=== PATIENT | male | born 1940 | race Caucasian/White ===

== ENCOUNTER 2017-09-29 14:19 | Inpatient (IN) | payer MEDICARE, MEDICAID ==
[~2017-09-29] VITALS: Ht 190.5 cm; Wt 136.4 kg
[2017-09-29] MEDS ORDERED: methylPREDNISolone sod succ 125mg/2ml vial IV ONE (14:40)
[2017-09-29] MEDS ORDERED: albuterol 2.5 MG/3 ML nebule NEB ONE (14:40)
[2017-09-29] MEDS ORDERED: succinylcholine 20mg/ml inj IV ONE (14:47)
[2017-09-29] MEDS ORDERED: propofol 1000mg/100ml bottle 100 ML IV ONE (14:48)
[2017-09-29 14:51] LABS: ABG BASE EXCESS -9.1 mmol/L (-2.0-3.0); ABG HCO3 19.2 mmol/L (22.0-26.0); ABG OXYGEN SATURATION 92.7 % (95-98); ABG PCO2 (T) 53.2 mmHg (35.0-48.0); ABG PH (T) 7.176 (7.350-7.450); ABG PO2 (T) 72.4 mmHg (83-108); ALLEN'S TEST Positive; FCOHb 0.6 % (0.5-1.5); FLOW 6 L/min; FMetHb 0.1 % (0.3-1.12); FO2Hb 92.1 % (94-100); TOTAL HEMOGLOBIN 10.8 G/dl (14.0-18.0)
[2017-09-29] MEDS ORDERED: normal saline 1000ml 250 ML IV PRN (14:55)
[2017-09-29] MEDS ORDERED: heparin 1,000 units/ml 10ml inj IV ONE (14:55)
[2017-09-29] MEDS ORDERED: epoetin 20,000 units/ml inj IV ONE (14:55)
[2017-09-29] MEDS ORDERED: heparin 1,000 units/ml 10ml inj HE ONE ×2 (15:00→15:40)
[2017-09-29] MEDS ORDERED: ondansetron/PF 4mg/2ml inj IV PRN (15:00)
[2017-09-29] MEDS ORDERED: acetaminophen 325mg tablet PO PRN (15:00)
[2017-09-29] MEDS ORDERED: magnesium hydroxide 30ml (MOM) UD suspension PO PRN (15:00)
[2017-09-29] MEDS ORDERED: ipratropium/albuterol 3ml nebule NEB PRN (15:00)
[2017-09-29 15:33] LABS: HEMATOCRIT 29.6 % (42.0-52.0); HEMOGLOBIN 9.6 g/dl (14.0-17.9); MEAN CORPUSCULAR HEMOGLOBIN 29.5 PG (27.0-31.0); MEAN CORPUSCULAR HGB CONC 32.3 % (33.0-36.5); MEAN CORPUSCULAR VOLUME 91.4 FL (78-98); MEAN PLATELET VOLUME 9.6 FL (7.4-10.4); PLATELET COUNT 170 X10'3 (140-440); RED BLOOD COUNT 3.23 X10'6 (4.70-6.10); RED CELL DISTRIBUTION WIDTH 16.7 % (11.5-14.5); WHITE BLOOD COUNT 7.9 X10'3 (4.5-11.0)
[2017-09-29] MEDS ORDERED: INSU100V9 SQ (15:43)
[2017-09-29 15:44] LABS: INR 1.1 INR; PARTIAL THROMBOPLASTIN TIME 24 SECONDS (22-32); PROTHROMBIN TIME 11.4 SECONDS (9.0-12.0)
[2017-09-29] MEDS ORDERED: LORA10CA9 PO (15:44)
[2017-09-29] MEDS ORDERED: SYN0.088T PO (15:46)
[2017-09-29] MEDS ORDERED: DIGO125T PO (15:46)
[2017-09-29] MEDS ORDERED: FURO-150 PO (15:46)
[2017-09-29] MEDS ORDERED: DILT120C51 PO (15:47)
[2017-09-29] MEDS ORDERED: PRAV40TA3 PO (15:48)
[2017-09-29] MEDS ORDERED: [UNRECOGNIZED DRUG - CODE] PO (15:48)
[2017-09-29] MEDS ORDERED: ALLO100T PO (15:49)
[2017-09-29 15:50] LABS: ALANINE AMINOTRANSFERASE 33 U/L (12-78); ALBUMIN 2.6 G/DL (3.4-5.0); ALBUMIN/GLOBULIN RATIO 0.8 (1.1-1.5); ALKALINE PHOSPHATASE 137 IU/L (46-116); ANION GAP 12 (8-16); ASPARTATE AMINO TRANSFERASE 24 U/L (10-37); BILIRUBIN,TOTAL 0.4 MG/DL (0.1-1.0); BLOOD UREA NITROGEN 107 MG/DL (7-18); BUN/CREATININE RATIO 14.2 (5.4-32.0); CALCIUM 7.7 MG/DL (8.5-10.1); CHLORIDE 102 MMOL/L (99-107); CREATININE 7.51 MG/DL (0.60-1.10); GLUCOSE 140 MG/DL (70-104); SODIUM 135 MMOL/L (135-145); TOTAL CARBON DIOXIDE 21.3 MMOL/L (24-32); eGFR 7 ML/MIN
[2017-09-29] MEDS ORDERED: BUDE10.22 INH (15:50)
[2017-09-29] MEDS ORDERED: CHOL2000 PO (15:50)
[2017-09-29] MEDS ORDERED: TAMS0.4C32 PO (15:51)
[2017-09-29] MEDS ORDERED: ALB0.5UD IH (15:51)
[2017-09-29 15:53] LABS: ANISOCYTOSIS 1+; PLATELET ESTIMATE NORMAL; TOTAL CELLS COUNTED 100
[2017-09-29 15:59] LABS: MAGNESIUM 2.1 MG/DL (1.5-2.4); PHOSPHORUS 8.5 MG/DL (2.3-4.5)
[2017-09-29] MEDS: pantoprazole 40 MG vial IV SCH (16:18)
[2017-09-29 16:40] LABS: ABG BASE EXCESS -7.4 mmol/L (-2.0-3.0); ABG HCO3 20.8 mmol/L (22.0-26.0); ABG OXYGEN SATURATION 98.1 % (95-98); ABG PCO2 (T) 55.6 mmHg (35.0-48.0); ABG PO2 (T) 143.4 mmHg (83-108); ALLEN'S TEST Positive; FCOHb 0.3 % (0.5-1.5); FMetHb 0.3 % (0.3-1.12); FO2Hb 97.5 % (94-100); PEEP 5 cm H2O; RESPIRATORY RATE 14 b/min; TIDAL VOLUME 600 mL; TOTAL HEMOGLOBIN 9.8 G/dl (14.0-18.0)
[2017-09-29 17:00] VITALS: BP 130/52
[2017-09-29] MEDS: morphine 4 MG/ML inj SYRINge IV PRN (17:26)
[2017-09-29 19:00] VITALS: BP 144/58
[2017-09-29 20:00] VITALS: BP 152/58
[2017-09-29] MEDS: propofol 1000mg/100ml bottle 100 ML IV PRN ×2 (20:53→21:29)
[2017-09-29 21:00] VITALS: BP 157/69
[2017-09-29] MEDS: heparin, porcine 5000 units/ml vial SQ SCH (21:28)
[2017-09-29 22:00] VITALS: BP 124/59
[2017-09-29 23:00] VITALS: BP 154/70
[2017-09-30] VITALS (23 sets, daily range): BP systolic 118–157; BP diastolic 37–85
[2017-09-30] MEDS: heparin, porcine 5000 units/ml vial SQ SCH ×3 (00:12→16:16)
[2017-09-30] MEDS: propofol 1000mg/100ml bottle 100 ML IV PRN ×7 (01:29→18:22)
[2017-09-30] MEDS: morphine 4 MG/ML inj SYRINge IV PRN ×2 (01:30→07:26)
[2017-09-30 03:30] LABS: ABG BASE EXCESS -5.4 mmol/L (-2.0-3.0); ABG HCO3 20.2 mmol/L (22.0-26.0); ABG OXYGEN SATURATION 95.9 % (95-98); ABG PCO2 (T) 38.6 mmHg (35.0-48.0); ABG PH (T) 7.334 (7.350-7.450); ABG PO2 (T) 82.7 mmHg (83-108); ALLEN'S TEST Positive; FCOHb 0.3 % (0.5-1.5); FO2Hb 95.6 % (94-100); MINUTE VOLUME 10 L/min; PATIENT TEMPERATURE 36.4; PEEP 5 cm H2O; RESPIRATORY RATE 16 b/min; RESPIRATORY RATE (OBSERVED) 16 b/min; TIDAL VOLUME 600 mL; TOTAL HEMOGLOBIN 10.2 G/dl (14.0-18.0)
[2017-09-30 05:12] LABS: HEMATOCRIT 30.8 % (42.0-52.0); HEMOGLOBIN 9.8 g/dl (14.0-17.9); MEAN CORPUSCULAR HEMOGLOBIN 28.8 PG (27.0-31.0); MEAN CORPUSCULAR HGB CONC 31.9 % (33.0-36.5); MEAN CORPUSCULAR VOLUME 90.4 FL (78-98); MEAN PLATELET VOLUME 10.6 FL (7.4-10.4); PLATELET COUNT 154 X10'3 (140-440); RED BLOOD COUNT 3.41 X10'6 (4.70-6.10); RED CELL DISTRIBUTION WIDTH 16.7 % (11.5-14.5); WHITE BLOOD COUNT 6.5 X10'3 (4.5-11.0)
[2017-09-30 05:24] LABS: INR 1.1 INR; PARTIAL THROMBOPLASTIN TIME 24 SECONDS (22-32); PROTHROMBIN TIME 11.4 SECONDS (9.0-12.0)
[2017-09-30 05:29] LABS: ALANINE AMINOTRANSFERASE 29 U/L (12-78); ALBUMIN 2.3 G/DL (3.4-5.0); ALBUMIN/GLOBULIN RATIO 0.7 (1.1-1.5); ALKALINE PHOSPHATASE 134 IU/L (46-116); ANION GAP 10 (8-16); ASPARTATE AMINO TRANSFERASE 36 U/L (10-37); BILIRUBIN,TOTAL 0.4 MG/DL (0.1-1.0); BLOOD UREA NITROGEN 76 MG/DL (7-18); BUN/CREATININE RATIO 13.8 (5.4-32.0); CALCIUM 7.8 MG/DL (8.5-10.1); CHLORIDE 101 MMOL/L (99-107); CREATININE 5.51 MG/DL (0.60-1.10); GLUCOSE 148 MG/DL (70-104); SODIUM 136 MMOL/L (135-145); TOTAL CARBON DIOXIDE 24.6 MMOL/L (24-32); TOTAL PROTEIN 5.6 G/DL (6.4-8.2); eGFR 10 ML/MIN
[2017-09-30 05:33] LABS: MAGNESIUM 2.1 MG/DL (1.5-2.4); PHOSPHORUS 6.7 MG/DL (2.3-4.5)
[2017-09-30 06:25] LABS: ANISOCYTOSIS 1+; PLATELET ESTIMATE NORMAL; TOTAL CELLS COUNTED 100
[2017-09-30] MEDS: pantoprazole 40 MG vial IV SCH (07:27)
[2017-09-30] MEDS ORDERED: normal saline 1000ml 250 ML IV PRN (08:54)
[2017-09-30] MEDS ORDERED: heparin 1,000 units/ml 10ml inj IV ONE (08:55)
[2017-09-30] MEDS ORDERED: heparin 1,000 units/ml 10ml inj HE ONE ×2 (09:00)
[2017-09-30] MEDS ORDERED: levoTHYROXINE 75mcg tablet PO SCH (09:05)
[2017-09-30] MEDS ORDERED: albuterol 2.5 MG/3 ML nebule NEB PRN (11:45)
[2017-09-30] MEDS: levoTHYROXINE 75mcg tablet PO SCH (12:34)
[2017-09-30] MEDS ORDERED: diltiazem CD 120mg capsule (once-daily) PO SCH (21:00)
[2017-09-30] MEDS: insulin glargine (Lantus) pen - multi-dose SQ SCH (21:00)
[2017-09-30] MEDS: tamsulosin 0.4mg capsule PO SCH (21:00)
[2017-09-30] MEDS: pravastatin 40mg tablet PO SCH (22:12)
[2017-10-01] VITALS (24 sets, daily range): BP systolic 111–178; BP diastolic 39–75
[2017-10-01] MEDS: propofol 1000mg/100ml bottle 100 ML IV PRN ×2 (00:18→06:01)
[2017-10-01] MEDS: heparin, porcine 5000 units/ml vial SQ SCH ×3 (00:18→16:02)
[2017-10-01 03:21] LABS: ABG HCO3 26.4 mmol/L (22.0-26.0); ABG PCO2 (T) 44.6 mmHg (35.0-48.0); ABG PH (T) 7.388 (7.350-7.450); ABG PO2 (T) 87.2 mmHg (83-108); ALLEN'S TEST Positive; FCOHb 0.3 % (0.5-1.5); FO2Hb 95.7 % (94-100); MINUTE VOLUME 10 L/min; PATIENT TEMPERATURE 36.5; PEEP 5 cm H2O; RESPIRATORY RATE 16 b/min; RESPIRATORY RATE (OBSERVED) 16 b/min; TIDAL VOLUME 600 mL
[2017-10-01 05:05] LABS: HEMATOCRIT 31.7 % (42.0-52.0); HEMOGLOBIN 10.2 g/dl (14.0-17.9); MEAN CORPUSCULAR HEMOGLOBIN 29.1 PG (27.0-31.0); MEAN CORPUSCULAR HGB CONC 32.2 % (33.0-36.5); MEAN CORPUSCULAR VOLUME 90.5 FL (78-98); MEAN PLATELET VOLUME 10.2 FL (7.4-10.4); PLATELET COUNT 184 X10'3 (140-440); WHITE BLOOD COUNT 9.2 X10'3 (4.5-11.0)
[2017-10-01 05:11] LABS: INR 1.1 INR; PARTIAL THROMBOPLASTIN TIME 27 SECONDS (22-32)
[2017-10-01 05:20] LABS: ALANINE AMINOTRANSFERASE 26 U/L (12-78); ALBUMIN 2.1 G/DL (3.4-5.0); ALBUMIN/GLOBULIN RATIO 0.6 (1.1-1.5); ALKALINE PHOSPHATASE 126 IU/L (46-116); ANION GAP 11 (8-16); ASPARTATE AMINO TRANSFERASE 31 U/L (10-37); BILIRUBIN,TOTAL 0.3 MG/DL (0.1-1.0); BLOOD UREA NITROGEN 62 MG/DL (7-18); BUN/CREATININE RATIO 13.4 (5.4-32.0); CALCIUM 7.7 MG/DL (8.5-10.1); CHLORIDE 100 MMOL/L (99-107); CREATININE 4.62 MG/DL (0.60-1.10); GLUCOSE 167 MG/DL (70-104); PHOSPHORUS 6.1 MG/DL (2.3-4.5); POTASSIUM 4.5 MMOL/L (3.5-5.1); SODIUM 137 MMOL/L (135-145); TOTAL CARBON DIOXIDE 25.9 MMOL/L (24-32); TOTAL PROTEIN 5.4 G/DL (6.4-8.2); eGFR 12 ML/MIN
[2017-10-01 06:13] LABS: TOTAL CELLS COUNTED 100
[2017-10-01 06:14] LABS: ANISOCYTOSIS 1+; PLATELET ESTIMATE NORMAL
[2017-10-01] MEDS: albuterol 2.5 MG/3 ML nebule NEB SCH ×4 (07:26→19:00)
[2017-10-01] MEDS: BUDESONIDE 0.25 MG/2 ML AMPUL.NEB IH SCH ×2 (07:27→19:00)
[2017-10-01] MEDS ORDERED: digoxin 125mcg (0.125mg) tablet PO SCH (08:00)
[2017-10-01] MEDS ORDERED: pravastatin 40mg tablet PO SCH (08:00)
[2017-10-01] MEDS ORDERED: diltiazem CD 120mg capsule (once-daily) PO SCH (08:00)
[2017-10-01] MEDS ORDERED: tamsulosin 0.4mg capsule PO SCH (08:00)
[2017-10-01] MEDS ORDERED: LORATADINE PO SCH (08:00)
[2017-10-01] MEDS: vitamin D (cholecalciferol) 1,000 unit tablet PO SCH (08:05)
[2017-10-01] MEDS: levoTHYROXINE 75mcg tablet PO SCH (08:05)
[2017-10-01] MEDS: pantoprazole 40 MG vial IV SCH (08:05)
[2017-10-01] MEDS: digoxin 125mcg (0.125mg) tablet PO SCH (08:05)
[2017-10-01] MEDS: allopurinol 100mg tablet PO SCH (08:05)
[2017-10-01] MEDS ORDERED: normal saline 1000ml 250 ML IV PRN (09:09)
[2017-10-01] MEDS ORDERED: heparin 1,000 units/ml 10ml inj IV ONE (09:10)
[2017-10-01] MEDS ORDERED: epoetin 20,000 units/ml inj IV ONE (09:10)
[2017-10-01] MEDS ORDERED: heparin 1,000 units/ml 10ml inj HE ONE ×2 (09:15)
[2017-10-01 11:16] LABS: HBSAG SCREEN Negative (Negative)
[2017-10-01] MEDS: morphine 4 MG/ML inj SYRINge IV PRN ×2 (12:04→21:54)
[2017-10-01] MEDS: diltiazem 30mg tablet PO SCH ×2 (12:55→21:53)
[2017-10-01] MEDS: furosemide 20MG tablet PO SCH (15:11)
[2017-10-01] MEDS: insulin glargine (Lantus) pen - multi-dose SQ SCH (21:00)
[2017-10-01] MEDS: tamsulosin 0.4mg capsule PO SCH (21:53)
[2017-10-01] MEDS: pravastatin 40mg tablet PO SCH (21:53)
[2017-10-02] VITALS (24 sets, daily range): BP systolic 100–153; BP diastolic 38–70
[2017-10-02] MEDS: heparin, porcine 5000 units/ml vial SQ SCH ×3 (00:07→16:19)
[2017-10-02 04:01] LABS: ABG BASE EXCESS 2.5 mmol/L (-2.0-3.0); ABG HCO3 27.6 mmol/L (22.0-26.0); ABG OXYGEN SATURATION 95.9 % (95-98); ABG PCO2 (T) 44.6 mmHg (35.0-48.0); ABG PH (T) 7.409 (7.350-7.450); ALLEN'S TEST Positive; FCOHb 0.3 % (0.5-1.5); FMetHb 0.3 % (0.3-1.12); FO2Hb 95.3 % (94-100); MINUTE VOLUME 10 L/min; PATIENT TEMPERATURE 36.8; PEEP 8 cm H2O; RESPIRATORY RATE 16 b/min; RESPIRATORY RATE (OBSERVED) 17 b/min; TIDAL VOLUME 600 mL; TOTAL HEMOGLOBIN 10.4 G/dl (14.0-18.0)
[2017-10-02] MEDS: propofol 1000mg/100ml bottle 100 ML IV PRN (04:14)
[2017-10-02 04:39] LABS: HEMATOCRIT 29.9 % (42.0-52.0); HEMOGLOBIN 9.6 g/dl (14.0-17.9); MEAN CORPUSCULAR HEMOGLOBIN 29.1 PG (27.0-31.0); MEAN CORPUSCULAR HGB CONC 32.3 % (33.0-36.5); MEAN CORPUSCULAR VOLUME 90.1 FL (78-98); MEAN PLATELET VOLUME 9.8 FL (7.4-10.4); PLATELET COUNT 189 X10'3 (140-440); RED BLOOD COUNT 3.32 X10'6 (4.70-6.10); RED CELL DISTRIBUTION WIDTH 16.3 % (11.5-14.5); WHITE BLOOD COUNT 10.4 X10'3 (4.5-11.0)
[2017-10-02] MEDS: morphine 4 MG/ML inj SYRINge IV PRN ×5 (04:41→21:53)
[2017-10-02 04:52] LABS: PARTIAL THROMBOPLASTIN TIME 26 SECONDS (22-32); PROTHROMBIN TIME 10.7 SECONDS (9.0-12.0)
[2017-10-02 04:57] LABS: ALANINE AMINOTRANSFERASE 24 U/L (12-78); ALBUMIN/GLOBULIN RATIO 0.6 (1.1-1.5); ALKALINE PHOSPHATASE 114 IU/L (46-116); ANION GAP 6 (8-16); ASPARTATE AMINO TRANSFERASE 27 U/L (10-37); BILIRUBIN,TOTAL 0.3 MG/DL (0.1-1.0); BLOOD UREA NITROGEN 47 MG/DL (7-18); BUN/CREATININE RATIO 11.9 (5.4-32.0); CALCIUM 7.3 MG/DL (8.5-10.1); CHLORIDE 102 MMOL/L (99-107); CREATININE 3.95 MG/DL (0.60-1.10); GLUCOSE 167 MG/DL (70-104); MAGNESIUM 1.9 MG/DL (1.5-2.4); PHOSPHORUS 4.2 MG/DL (2.3-4.5); POTASSIUM 3.7 MMOL/L (3.5-5.1); PREALBUMIN 22.5 MG/DL (19-36); SODIUM 137 MMOL/L (135-145); TOTAL CARBON DIOXIDE 29.4 MMOL/L (24-32); TOTAL PROTEIN 5.1 G/DL (6.4-8.2); eGFR 15 ML/MIN
[2017-10-02] MEDS ORDERED: morphine 4 MG/ML inj SYRINge IV ONE (06:00)
[2017-10-02 06:11] LABS: PLATELET ESTIMATE NORMAL; TOTAL CELLS COUNTED 100
[2017-10-02 06:12] LABS: ANISOCYTOSIS 1+; LARGE PLATELETS FEW
[2017-10-02] MEDS: BUDESONIDE 0.25 MG/2 ML AMPUL.NEB IH SCH ×2 (07:32→19:26)
[2017-10-02] MEDS: albuterol 2.5 MG/3 ML nebule NEB SCH ×4 (07:32→19:26)
[2017-10-02] MEDS ORDERED: epoetin 20,000 units/ml inj IV ONE (07:35)
[2017-10-02] MEDS ORDERED: heparin 1,000 units/ml 10ml inj HE ONE ×2 (08:00)
[2017-10-02] MEDS ORDERED: heparin 1,000 units/ml 10ml inj IV ONE (08:00)
[2017-10-02] MEDS ORDERED: normal saline 1000ml 250 ML IV PRN (08:00)
[2017-10-02] MEDS: vitamin D (cholecalciferol) 1,000 unit tablet PO SCH (08:21)
[2017-10-02] MEDS: diltiazem 30mg tablet PO SCH ×3 (08:21→19:47)
[2017-10-02] MEDS: allopurinol 100mg tablet PO SCH (08:21)
[2017-10-02] MEDS: pantoprazole 40 MG vial IV SCH (08:21)
[2017-10-02] MEDS: furosemide 20MG tablet PO SCH (08:22)
[2017-10-02] MEDS: levoTHYROXINE 75mcg tablet PO SCH (08:23)
[2017-10-02] MEDS: mineral oil/petrolatum ophthal oint EACHEYE SCH ×2 (17:56→19:52)
[2017-10-02] MEDS: insulin glargine (Lantus) pen - multi-dose SQ SCH (19:45)
[2017-10-02] MEDS: pravastatin 40mg tablet PO SCH (19:48)
[2017-10-02] MEDS: tamsulosin 0.4mg capsule PO SCH (19:48)
[2017-10-03] VITALS (26 sets, daily range): BP systolic 100–156; BP diastolic 41–92
[2017-10-03] MEDS: heparin, porcine 5000 units/ml vial SQ SCH ×3 (00:17→16:00)
[2017-10-03] MEDS: morphine 4 MG/ML inj SYRINge IV PRN ×3 (00:17→07:08)
[2017-10-03] MEDS: mineral oil/petrolatum ophthal oint EACHEYE SCH ×4 (02:49→20:00)
[2017-10-03 03:55] LABS: ABG BASE EXCESS 4.4 mmol/L (-2.0-3.0); ABG HCO3 33.1 mmol/L (22.0-26.0); ABG PCO2 (T) 70.8 mmHg (35.0-48.0); ABG PH (T) 7.293 (7.350-7.450); ABG PO2 (T) 79.9 mmHg (83-108); ALLEN'S TEST Positive; MINUTE VOLUME 9 L/min; PEEP 7 cm H2O; RESPIRATORY RATE (OBSERVED) 20 b/min
[2017-10-03 04:04] LABS: HEMATOCRIT 30.3 % (42.0-52.0); HEMOGLOBIN 9.6 g/dl (14.0-17.9); MEAN CORPUSCULAR HEMOGLOBIN 28.8 PG (27.0-31.0); MEAN CORPUSCULAR HGB CONC 31.7 % (33.0-36.5); MEAN CORPUSCULAR VOLUME 90.9 FL (78-98); MEAN PLATELET VOLUME 9.4 FL (7.4-10.4); PLATELET COUNT 174 X10'3 (140-440); RED BLOOD COUNT 3.33 X10'6 (4.70-6.10); RED CELL DISTRIBUTION WIDTH 16.4 % (11.5-14.5); WHITE BLOOD COUNT 10.6 X10'3 (4.5-11.0)
[2017-10-03 04:14] LABS: PARTIAL THROMBOPLASTIN TIME 27 SECONDS (22-32); PROTHROMBIN TIME 10.4 SECONDS (9.0-12.0)
[2017-10-03 04:19] LABS: ALANINE AMINOTRANSFERASE 33 U/L (12-78); ALBUMIN 2.2 G/DL (3.4-5.0); ALBUMIN/GLOBULIN RATIO 0.6 (1.1-1.5); ALKALINE PHOSPHATASE 107 IU/L (46-116); ANION GAP 5 (8-16); ASPARTATE AMINO TRANSFERASE 28 U/L (10-37); BILIRUBIN,TOTAL 0.4 MG/DL (0.1-1.0); BLOOD UREA NITROGEN 46 MG/DL (7-18); BUN/CREATININE RATIO 11.7 (5.4-32.0); CALCIUM 7.7 MG/DL (8.5-10.1); CHLORIDE 102 MMOL/L (99-107); CREATININE 3.93 MG/DL (0.60-1.10); GLUCOSE 137 MG/DL (70-104); MAGNESIUM 2.1 MG/DL (1.5-2.4); PHOSPHORUS 4.3 MG/DL (2.3-4.5); POTASSIUM 4.3 MMOL/L (3.5-5.1); SODIUM 138 MMOL/L (135-145); TOTAL PROTEIN 5.7 G/DL (6.4-8.2); eGFR 15 ML/MIN
[2017-10-03 05:40] LABS: TOTAL CELLS COUNTED 100
[2017-10-03 05:41] LABS: ANISOCYTOSIS 1+; PLATELET ESTIMATE NORMAL
[2017-10-03] MEDS ORDERED: pantoprazole 40mg Tablet.DR PO SCH (07:30)
[2017-10-03] MEDS: vitamin D (cholecalciferol) 1,000 unit tablet PO SCH (07:39)
[2017-10-03] MEDS: diltiazem 30mg tablet PO SCH ×3 (07:39→21:01)
[2017-10-03] MEDS: digoxin 125mcg (0.125mg) tablet PO SCH (07:39)
[2017-10-03] MEDS: allopurinol 100mg tablet PO SCH (07:39)
[2017-10-03] MEDS: levoTHYROXINE 75mcg tablet PO SCH (07:42)
[2017-10-03] MEDS ORDERED: normal saline 1000ml 250 ML IV PRN (07:42)
[2017-10-03] MEDS ORDERED: heparin 1,000unit/ml 10ml vial 10 ML IV ONE (07:42)
[2017-10-03] MEDS ORDERED: heparin 1,000 units/ml 10ml inj HE ONE ×2 (07:50)
[2017-10-03] MEDS: furosemide 20MG tablet PO SCH (08:00)
[2017-10-03] MEDS: albuterol 2.5 MG/3 ML nebule NEB SCH ×4 (08:08→19:13)
[2017-10-03] MEDS: BUDESONIDE 0.25 MG/2 ML AMPUL.NEB IH SCH ×2 (08:08→19:13)
[2017-10-03] MEDS: FENTANYL-0.9 % NACL/PF 100 ML IV PRN (11:11)
[2017-10-03] MEDS: methylnaltrexone br 12mg/0.6ml inj***SubQ only SQ SCH (12:38)
[2017-10-03] MEDS ORDERED: LIDOcaine 0.5% (5mg/ml) 50ml vial ONE (15:49)
[2017-10-03] MEDS: insulin glargine (Lantus) pen - multi-dose SQ SCH (21:00)
[2017-10-03] MEDS: pravastatin 40mg tablet PO SCH (21:01)
[2017-10-03] MEDS: tamsulosin 0.4mg capsule PO SCH (21:01)
[2017-10-04] VITALS (23 sets, daily range): BP systolic 113–166; BP diastolic 27–79
[2017-10-04] MEDS: heparin, porcine 5000 units/ml vial SQ SCH ×4 (00:41→23:32)
[2017-10-04] MEDS: FENTANYL-0.9 % NACL/PF 100 ML IV PRN (01:22)
[2017-10-04] MEDS: mineral oil/petrolatum ophthal oint EACHEYE SCH (01:29)
[2017-10-04 03:50] LABS: ABG BASE EXCESS 5.2 mmol/L (-2.0-3.0); ABG HCO3 30.1 mmol/L (22.0-26.0); ABG OXYGEN SATURATION 96.5 % (95-98); ABG PCO2 (T) 46.9 mmHg (35.0-48.0); ABG PH (T) 7.427 (7.350-7.450); ABG PO2 (T) 86.4 mmHg (83-108); ALLEN'S TEST Positive; FCOHb 0.3 % (0.5-1.5); FMetHb 0.3 % (0.3-1.12); FO2Hb 95.9 % (94-100); MINUTE VOLUME 9 L/min; PATIENT TEMPERATURE 37.3; PEEP 10 cm H2O; RESPIRATORY RATE 16 b/min; RESPIRATORY RATE (OBSERVED) 16 b/min; TIDAL VOLUME 550 mL; TOTAL HEMOGLOBIN 9.8 G/dl (14.0-18.0)
[2017-10-04 06:00] LABS: BASOPHILS % (AUTO) 0.1 % (0-1); EOSINOPHILS # (AUTO) 0.5 X10'3 (0-0.9); HEMATOCRIT 25.7 % (42.0-52.0); HEMOGLOBIN 8.1 g/dl (14.0-17.9); LYMPHOCYTES # (AUTO) 0.9 X10'3 (1.1-4.8); LYMPHOCYTES % (AUTO) 8.9 % (21-51); MEAN CORPUSCULAR HEMOGLOBIN 28.8 PG (27.0-31.0); MEAN CORPUSCULAR HGB CONC 31.6 % (33.0-36.5); MEAN CORPUSCULAR VOLUME 91.1 FL (78-98); MEAN PLATELET VOLUME 10.2 FL (7.4-10.4); MONOCYTES % (AUTO) 9.6 % (2-12); NEUTROPHILS # (AUTO) 7.7 X10'3 (1.8-7.7); NEUTROPHILS % (AUTO) 76.4 % (42-75); PLATELET COUNT 176 X10'3 (140-440); RED BLOOD COUNT 2.82 X10'6 (4.70-6.10); RED CELL DISTRIBUTION WIDTH 15.9 % (11.5-14.5); WHITE BLOOD COUNT 10.1 X10'3 (4.5-11.0)
[2017-10-04 06:10] LABS: PARTIAL THROMBOPLASTIN TIME 31 SECONDS (22-32); PROTHROMBIN TIME 10.4 SECONDS (9.0-12.0)
[2017-10-04 06:27] LABS: ALANINE AMINOTRANSFERASE 27 U/L (12-78); ALBUMIN/GLOBULIN RATIO 0.6 (1.1-1.5); ALKALINE PHOSPHATASE 110 IU/L (46-116); ANION GAP 5 (8-16); ASPARTATE AMINO TRANSFERASE 28 U/L (10-37); BILIRUBIN,TOTAL 0.6 MG/DL (0.1-1.0); BLOOD UREA NITROGEN 42 MG/DL (7-18); BUN/CREATININE RATIO 10.9 (5.4-32.0); CALCIUM 7.5 MG/DL (8.5-10.1); CHLORIDE 102 MMOL/L (99-107); CREATININE 3.86 MG/DL (0.60-1.10); GLUCOSE 90 MG/DL (70-104); PHOSPHORUS 3.4 MG/DL (2.3-4.5); POTASSIUM 4.3 MMOL/L (3.5-5.1); SODIUM 138 MMOL/L (135-145); TOTAL PROTEIN 5.4 G/DL (6.4-8.2); eGFR 15 ML/MIN
[2017-10-04] MEDS: albuterol 2.5 MG/3 ML nebule NEB SCH ×4 (07:16→20:12)
[2017-10-04] MEDS: BUDESONIDE 0.25 MG/2 ML AMPUL.NEB IH SCH ×2 (07:16→20:12)
[2017-10-04] MEDS: diltiazem 30mg tablet PO SCH ×3 (08:00→19:24)
[2017-10-04 11:16] LABS: ABG BASE EXCESS 2.4 mmol/L (-2.0-3.0); ABG HCO3 29.2 mmol/L (22.0-26.0); ABG OXYGEN SATURATION 94.4 % (95-98); ABG PCO2 (T) 56.7 mmHg (35.0-48.0); ABG PH (T) 7.329 (7.350-7.450); ABG PO2 (T) 74.3 mmHg (83-108); ALLEN'S TEST Positive; FCOHb 0.4 % (0.5-1.5); FMetHb 0.3 % (0.3-1.12); FO2Hb 93.7 % (94-100); MINUTE VOLUME 6 L/min; PEEP 5 cm H2O; RESPIRATORY RATE (OBSERVED) 12 b/min; TOTAL HEMOGLOBIN 10.1 G/dl (14.0-18.0)
[2017-10-04] MEDS ORDERED: epoetin 20,000 units/ml inj SQ ONE (11:25)
[2017-10-04] MEDS: vitamin D (cholecalciferol) 1,000 unit tablet PO SCH (11:39)
[2017-10-04] MEDS: allopurinol 100mg tablet PO SCH (11:40)
[2017-10-04] MEDS: levoTHYROXINE 75mcg tablet PO SCH (11:40)
[2017-10-04] MEDS: tamsulosin 0.4mg capsule PO SCH (19:24)
[2017-10-04] MEDS: pravastatin 40mg tablet PO SCH (19:24)
[2017-10-04] MEDS: insulin glargine (Lantus) pen - multi-dose SQ SCH (19:24)
[2017-10-04] MEDS ORDERED: morphine 2 MG/ML inj. syringe IV PRN (23:25)
[2017-10-04] MEDS: morphine 4 MG/ML inj SYRINge IV PRN (23:29)
[2017-10-05] VITALS (22 sets, daily range): BP systolic 117–186; BP diastolic 40–75
[2017-10-05] MEDS: morphine 4 MG/ML inj SYRINge IV PRN (05:23)
[2017-10-05 05:57] LABS: BASOPHILS % (AUTO) 0.2 % (0-1); EOSINOPHILS # (AUTO) 0.5 X10'3 (0-0.9); EOSINOPHILS % (AUTO) 6.2 % (0-6); HEMATOCRIT 29.5 % (42.0-52.0); HEMOGLOBIN 9.3 g/dl (14.0-17.9); LYMPHOCYTES # (AUTO) 0.6 X10'3 (1.1-4.8); LYMPHOCYTES % (AUTO) 6.8 % (21-51); MEAN CORPUSCULAR HEMOGLOBIN 28.5 PG (27.0-31.0); MEAN CORPUSCULAR HGB CONC 31.5 % (33.0-36.5); MEAN CORPUSCULAR VOLUME 90.5 FL (78-98); MEAN PLATELET VOLUME 9.5 FL (7.4-10.4); MONOCYTES # (AUTO) 0.9 X10'3 (0-0.9); MONOCYTES % (AUTO) 10.9 % (2-12); NEUTROPHILS # (AUTO) 6.6 X10'3 (1.8-7.7); NEUTROPHILS % (AUTO) 75.9 % (42-75); PLATELET COUNT 178 X10'3 (140-440); RED BLOOD COUNT 3.26 X10'6 (4.70-6.10); RED CELL DISTRIBUTION WIDTH 16.7 % (11.5-14.5); WHITE BLOOD COUNT 8.7 X10'3 (4.5-11.0)
[2017-10-05 06:16] LABS: PARTIAL THROMBOPLASTIN TIME 33 SECONDS (22-32)
[2017-10-05 06:52] LABS: ALANINE AMINOTRANSFERASE 33 U/L (12-78); ALBUMIN 2.1 G/DL (3.4-5.0); ALBUMIN/GLOBULIN RATIO 0.6 (1.1-1.5); ALKALINE PHOSPHATASE 152 IU/L (46-116); ANION GAP 9 (8-16); ASPARTATE AMINO TRANSFERASE 30 U/L (10-37); BILIRUBIN,TOTAL 0.6 MG/DL (0.1-1.0); BLOOD UREA NITROGEN 64 MG/DL (7-18); BUN/CREATININE RATIO 13.3 (5.4-32.0); CALCIUM 7.9 MG/DL (8.5-10.1); CHLORIDE 101 MMOL/L (99-107); CREATININE 4.81 MG/DL (0.60-1.10); GLUCOSE 92 MG/DL (70-104); MAGNESIUM 2.3 MG/DL (1.5-2.4); PHOSPHORUS 5.7 MG/DL (2.3-4.5); POTASSIUM 4.7 MMOL/L (3.5-5.1); SODIUM 138 MMOL/L (135-145); TOTAL CARBON DIOXIDE 28.2 MMOL/L (24-32); TOTAL PROTEIN 5.7 G/DL (6.4-8.2); eGFR 12 ML/MIN
[2017-10-05] MEDS: BUDESONIDE 0.25 MG/2 ML AMPUL.NEB IH SCH ×2 (07:43→19:24)
[2017-10-05] MEDS: albuterol 2.5 MG/3 ML nebule NEB SCH ×4 (07:43→19:24)
[2017-10-05] MEDS ORDERED: normal saline 1000ml 250 ML IV PRN (07:51)
[2017-10-05] MEDS ORDERED: heparin 1,000unit/ml 10ml vial 10 ML IV ONE (07:51)
[2017-10-05] MEDS ORDERED: heparin 1,000 units/ml 10ml inj HE ONE ×2 (07:55)
[2017-10-05] MEDS ORDERED: heparin 1,000 units/ml 10ml inj IV ONE (07:55)
[2017-10-05] MEDS ORDERED: albumin (human) 25% 100ml IV 100 ML IV PRN (07:55)
[2017-10-05] MEDS: famotidine 20mg tablet PO SCH (08:10)
[2017-10-05] MEDS: vitamin D (cholecalciferol) 1,000 unit tablet PO SCH (08:10)
[2017-10-05] MEDS: levoTHYROXINE 75mcg tablet PO SCH (08:11)
[2017-10-05] MEDS: diltiazem 30mg tablet PO SCH ×3 (08:11→22:00)
[2017-10-05] MEDS: allopurinol 100mg tablet PO SCH (08:11)
[2017-10-05] MEDS: methylnaltrexone br 12mg/0.6ml inj***SubQ only SQ SCH (08:12)
[2017-10-05] MEDS: heparin, porcine 5000 units/ml vial SQ SCH ×2 (08:12→15:50)
[2017-10-05] MEDS: HYDROcodone/acetaminophen 5mg/325mg tablet PO PRN (10:12)
[2017-10-05 11:10] LABS: ABG BASE EXCESS 3.3 mmol/L (-2.0-3.0); ABG HCO3 30.6 mmol/L (22.0-26.0); ABG OXYGEN SATURATION 89.3 % (95-98); ABG PCO2 (T) 61.9 mmHg (35.0-48.0); ABG PH (T) 7.312 (7.350-7.450); ABG PO2 (T) 58.6 mmHg (83-108); ALLEN'S TEST Positive; FCOHb 0.8 % (0.5-1.5); FLOW 4 L/min; FMetHb 0.2 % (0.3-1.12); FO2Hb 88.4 % (94-100)
[2017-10-05] MEDS ORDERED: vancomycin/NS 1 GM ADD-VANTAGE 250 ML IV SCH (15:00)
[2017-10-05] MEDS: insulin glargine (Lantus) pen - multi-dose SQ SCH (21:00)
[2017-10-05] MEDS: tamsulosin 0.4mg capsule PO SCH (22:00)
[2017-10-05] MEDS: pravastatin 40mg tablet PO SCH (22:00)
[2017-10-06] VITALS (14 sets, daily range): BP systolic 114–155; BP diastolic 42–98
[2017-10-06] MEDS: heparin, porcine 5000 units/ml vial SQ SCH ×3 (00:06→15:47)
[2017-10-06] MEDS: VANCOMYCIN LEVEL IV SCH (03:00)
[2017-10-06 05:09] LABS: BASOPHILS % (AUTO) 0.2 % (0-1); EOSINOPHILS # (AUTO) 0.6 X10'3 (0-0.9); EOSINOPHILS % (AUTO) 6.9 % (0-6); HEMATOCRIT 29.1 % (42.0-52.0); HEMOGLOBIN 9.2 g/dl (14.0-17.9); LYMPHOCYTES # (AUTO) 0.6 X10'3 (1.1-4.8); MEAN CORPUSCULAR HEMOGLOBIN 28.9 PG (27.0-31.0); MEAN CORPUSCULAR HGB CONC 31.7 % (33.0-36.5); MEAN CORPUSCULAR VOLUME 91.2 FL (78-98); MEAN PLATELET VOLUME 9.4 FL (7.4-10.4); MONOCYTES # (AUTO) 0.9 X10'3 (0-0.9); MONOCYTES % (AUTO) 10.5 % (2-12); NEUTROPHILS # (AUTO) 6.4 X10'3 (1.8-7.7); NEUTROPHILS % (AUTO) 75.4 % (42-75); PLATELET COUNT 166 X10'3 (140-440); RED BLOOD COUNT 3.19 X10'6 (4.70-6.10); RED CELL DISTRIBUTION WIDTH 16.2 % (11.5-14.5); WHITE BLOOD COUNT 8.4 X10'3 (4.5-11.0)
[2017-10-06 05:29] LABS: PARTIAL THROMBOPLASTIN TIME 32 SECONDS (22-32); PROTHROMBIN TIME 10.3 SECONDS (9.0-12.0)
[2017-10-06 05:43] LABS: ALANINE AMINOTRANSFERASE 35 U/L (12-78); ALBUMIN 2.1 G/DL (3.4-5.0); ALBUMIN/GLOBULIN RATIO 0.6 (1.1-1.5); ALKALINE PHOSPHATASE 204 IU/L (46-116); ANION GAP 7 (8-16); ASPARTATE AMINO TRANSFERASE 28 U/L (10-37); BILIRUBIN,TOTAL 0.5 MG/DL (0.1-1.0); BLOOD UREA NITROGEN 53 MG/DL (7-18); BUN/CREATININE RATIO 12.5 (5.4-32.0); CALCIUM 7.9 MG/DL (8.5-10.1); CHLORIDE 101 MMOL/L (99-107); CREATININE 4.23 MG/DL (0.60-1.10); GLUCOSE 142 MG/DL (70-104); MAGNESIUM 2.1 MG/DL (1.5-2.4); PHOSPHORUS 4.5 MG/DL (2.3-4.5); POTASSIUM 4.2 MMOL/L (3.5-5.1); PREALBUMIN 19.3 MG/DL (19-36); SODIUM 138 MMOL/L (135-145); TOTAL CARBON DIOXIDE 29.9 MMOL/L (24-32); TOTAL PROTEIN 5.8 G/DL (6.4-8.2); VANCOMYCIN,RANDOM 10.1 UG/ML; eGFR 14 ML/MIN
[2017-10-06] MEDS ORDERED: normal saline 1000ml 250 ML IV PRN (07:33)
[2017-10-06] MEDS: albuterol 2.5 MG/3 ML nebule NEB SCH ×4 (07:34→19:06)
[2017-10-06] MEDS: BUDESONIDE 0.25 MG/2 ML AMPUL.NEB IH SCH ×2 (07:34→19:05)
[2017-10-06] MEDS ORDERED: epoetin 20,000 units/ml inj IV ONE (07:35)
[2017-10-06] MEDS ORDERED: heparin 1,000 units/ml 10ml inj IV ONE (07:35)
[2017-10-06] MEDS ORDERED: heparin 1,000 units/ml 10ml inj HE ONE ×2 (07:40)
[2017-10-06] MEDS: digoxin 125mcg (0.125mg) tablet PO SCH (08:13)
[2017-10-06] MEDS: diltiazem 30mg tablet PO SCH ×3 (08:13→20:05)
[2017-10-06] MEDS: allopurinol 100mg tablet PO SCH (08:14)
[2017-10-06] MEDS: famotidine 20mg tablet PO SCH (08:14)
[2017-10-06] MEDS: vitamin D (cholecalciferol) 1,000 unit tablet PO SCH (08:14)
[2017-10-06] MEDS ORDERED: tPA-cathflo 2 MG/2 ml IV flush IVF ONE (09:05)
[2017-10-06] MEDS ORDERED: heparin 1,000unit/ml 10ml vial 10 ML IV ONE (09:20)
[2017-10-06] MEDS ORDERED: tPA-cathflo 2 MG/2 ml IV flush IVF PRN (09:35)
[2017-10-06] MEDS: levoTHYROXINE 100mcg tablet PO SCH (09:44)
[2017-10-06] MEDS: HYDROcodone/acetaminophen 5mg/325mg tablet PO PRN (09:45)
[2017-10-06] MEDS: pravastatin 40mg tablet PO SCH (20:04)
[2017-10-06] MEDS: tamsulosin 0.4mg capsule PO SCH (20:04)
[2017-10-06] MEDS: insulin glargine (Lantus) pen - multi-dose SQ SCH (21:22)
[2017-10-07] MEDS: heparin, porcine 5000 units/ml vial SQ SCH ×4 (00:12→23:46)
[2017-10-07 03:00] VITALS: BP 140/63
[2017-10-07] MEDS: VANCOMYCIN LEVEL IV SCH (03:00)
[2017-10-07 05:57] LABS: PARTIAL THROMBOPLASTIN TIME 31 SECONDS (22-32); PROTHROMBIN TIME 10.4 SECONDS (9.0-12.0)
[2017-10-07 06:05] LABS: ALANINE AMINOTRANSFERASE 31 U/L (12-78); ALBUMIN 2.2 G/DL (3.4-5.0); ALBUMIN/GLOBULIN RATIO 0.6 (1.1-1.5); ALKALINE PHOSPHATASE 209 IU/L (46-116); ANION GAP 8 (8-16); ASPARTATE AMINO TRANSFERASE 25 U/L (10-37); BILIRUBIN,TOTAL 0.5 MG/DL (0.1-1.0); BLOOD UREA NITROGEN 47 MG/DL (7-18); BUN/CREATININE RATIO 11.8 (5.4-32.0); CALCIUM 8.7 MG/DL (8.5-10.1); CHLORIDE 102 MMOL/L (99-107); CREATININE 3.98 MG/DL (0.60-1.10); GLUCOSE 69 MG/DL (70-104); MAGNESIUM 2.1 MG/DL (1.5-2.4); PHOSPHORUS 4.7 MG/DL (2.3-4.5); POTASSIUM 4.5 MMOL/L (3.5-5.1); SODIUM 138 MMOL/L (135-145); TOTAL CARBON DIOXIDE 27.8 MMOL/L (24-32); TOTAL PROTEIN 6.2 G/DL (6.4-8.2); VANCOMYCIN,RANDOM 18.1 UG/ML; eGFR 15 ML/MIN
[2017-10-07 06:28] LABS: BASOPHILS % (AUTO) 0.2 % (0-1); EOSINOPHILS # (AUTO) 0.3 X10'3 (0-0.9); EOSINOPHILS % (AUTO) 3.1 % (0-6); HEMATOCRIT 31.9 % (42.0-52.0); HEMOGLOBIN 10.2 g/dl (14.0-17.9); LYMPHOCYTES # (AUTO) 0.5 X10'3 (1.1-4.8); LYMPHOCYTES % (AUTO) 5.8 % (21-51); MEAN CORPUSCULAR VOLUME 90.3 FL (78-98); MEAN PLATELET VOLUME 9.4 FL (7.4-10.4); MONOCYTES # (AUTO) 0.6 X10'3 (0-0.9); MONOCYTES % (AUTO) 7.1 % (2-12); NEUTROPHILS # (AUTO) 7.6 X10'3 (1.8-7.7); NEUTROPHILS % (AUTO) 83.8 % (42-75); PLATELET COUNT 159 X10'3 (140-440); RED BLOOD COUNT 3.53 X10'6 (4.70-6.10); RED CELL DISTRIBUTION WIDTH 16.2 % (11.5-14.5)
[2017-10-07 06:49] VITALS: BP 156/70
[2017-10-07] MEDS: levoTHYROXINE 100mcg tablet PO SCH (07:28)
[2017-10-07] MEDS: vitamin D (cholecalciferol) 1,000 unit tablet PO SCH (07:28)
[2017-10-07] MEDS: allopurinol 100mg tablet PO SCH (07:28)
[2017-10-07] MEDS: diltiazem 30mg tablet PO SCH ×3 (07:28→21:38)
[2017-10-07] MEDS: famotidine 20mg tablet PO SCH (07:28)
[2017-10-07] MEDS: methylnaltrexone br 12mg/0.6ml inj***SubQ only SQ SCH (07:38)
[2017-10-07] MEDS: BUDESONIDE 0.25 MG/2 ML AMPUL.NEB IH SCH ×2 (08:00→19:40)
[2017-10-07] MEDS: albuterol 2.5 MG/3 ML nebule NEB SCH ×4 (08:06→19:40)
[2017-10-07 11:00] VITALS: BP 138/65
[2017-10-07 15:00] VITALS: BP 145/50
[2017-10-07 19:00] VITALS: BP 156/56
[2017-10-07] MEDS: tamsulosin 0.4mg capsule PO SCH (21:38)
[2017-10-07] MEDS: pravastatin 40mg tablet PO SCH (21:38)
[2017-10-07 23:00] VITALS: BP 142/64
[2017-10-08 03:00] VITALS: BP 161/59
[2017-10-08 05:05] LABS: BASOPHILS % (AUTO) 0.3 % (0-1); EOSINOPHILS # (AUTO) 0.3 X10'3 (0-0.9); EOSINOPHILS % (AUTO) 2.3 % (0-6); HEMATOCRIT 33.5 % (42.0-52.0); HEMOGLOBIN 10.6 g/dl (14.0-17.9); LYMPHOCYTES # (AUTO) 0.7 X10'3 (1.1-4.8); LYMPHOCYTES % (AUTO) 6.5 % (21-51); MEAN CORPUSCULAR HEMOGLOBIN 28.6 PG (27.0-31.0); MEAN CORPUSCULAR HGB CONC 31.7 % (33.0-36.5); MEAN CORPUSCULAR VOLUME 90.3 FL (78-98); MEAN PLATELET VOLUME 9.2 FL (7.4-10.4); MONOCYTES # (AUTO) 0.7 X10'3 (0-0.9); MONOCYTES % (AUTO) 6.5 % (2-12); NEUTROPHILS # (AUTO) 9.4 X10'3 (1.8-7.7); NEUTROPHILS % (AUTO) 84.4 % (42-75); PLATELET COUNT 198 X10'3 (140-440); RED BLOOD COUNT 3.71 X10'6 (4.70-6.10); RED CELL DISTRIBUTION WIDTH 16.1 % (11.5-14.5); WHITE BLOOD COUNT 11.2 X10'3 (4.5-11.0)
[2017-10-08 05:19] LABS: PARTIAL THROMBOPLASTIN TIME 31 SECONDS (22-32); PROTHROMBIN TIME 10.8 SECONDS (9.0-12.0)
[2017-10-08 06:00] VITALS: BP 150/76
[2017-10-08 06:10] LABS: ALANINE AMINOTRANSFERASE 34 U/L (12-78); ALBUMIN 2.2 G/DL (3.4-5.0); ALBUMIN/GLOBULIN RATIO 0.6 (1.1-1.5); ALKALINE PHOSPHATASE 201 IU/L (46-116); ANION GAP 8 (8-16); ASPARTATE AMINO TRANSFERASE 21 U/L (10-37); BILIRUBIN,TOTAL 0.4 MG/DL (0.1-1.0); BLOOD UREA NITROGEN 65 MG/DL (7-18); BUN/CREATININE RATIO 12.3 (5.4-32.0); CALCIUM 8.9 MG/DL (8.5-10.1); CHLORIDE 101 MMOL/L (99-107); MAGNESIUM 2.2 MG/DL (1.5-2.4); PHOSPHORUS 5.7 MG/DL (2.3-4.5); POTASSIUM 4.6 MMOL/L (3.5-5.1); SODIUM 138 MMOL/L (135-145); TOTAL CARBON DIOXIDE 28.6 MMOL/L (24-32); TOTAL PROTEIN 6.1 G/DL (6.4-8.2); VANCOMYCIN,RANDOM 15.5 UG/ML; eGFR 11 ML/MIN
[2017-10-08 06:16] LABS: GLUCOSE 34 MG/DL (70-104)
[2017-10-08] MEDS ORDERED: dextrose 50%-water 50ml dispensing syringe IV ONE ×2 (06:18→06:23)
[2017-10-08] MEDS ORDERED: dextrose ORAL solution 15 GM/59 ML bottle PO PRN ×2 (06:20)
[2017-10-08] MEDS ORDERED: MESSAGE TO PHARMACY PO ONE (06:20)
[2017-10-08] MEDS ORDERED: glucagon, human recombinant 1mg kit SUBCUT PRN (06:20)
[2017-10-08] MEDS ORDERED: insulin Lispro (HumaLOG) vial - multi-dose SQ SCH (06:20)
[2017-10-08] MEDS ORDERED: epoetin 20,000 units/ml inj IV ONE (07:40)
[2017-10-08] MEDS ORDERED: heparin 1,000 units/ml 10ml inj IV ONE (07:40)
[2017-10-08] MEDS ORDERED: heparin 1,000unit/ml 10ml vial 10 ML IV ONE (07:40)
[2017-10-08] MEDS ORDERED: albumin (human) 25% 100ml IV 100 ML IV PRN (07:40)
[2017-10-08] MEDS ORDERED: heparin 1,000 units/ml 10ml inj HE ONE ×2 (07:45)
[2017-10-08] MEDS: albuterol 2.5 MG/3 ML nebule NEB SCH ×2 (08:01→12:02)
[2017-10-08] MEDS: BUDESONIDE 0.25 MG/2 ML AMPUL.NEB IH SCH (08:01)
[2017-10-08] MEDS: famotidine 20mg tablet PO SCH (08:14)
[2017-10-08] MEDS: vitamin D (cholecalciferol) 1,000 unit tablet PO SCH (08:14)
[2017-10-08] MEDS: allopurinol 100mg tablet PO SCH (08:14)
[2017-10-08] MEDS: heparin, porcine 5000 units/ml vial SQ SCH (08:14)
[2017-10-08] MEDS: levoTHYROXINE 100mcg tablet PO SCH (08:14)
[2017-10-08] MEDS: digoxin 125mcg (0.125mg) tablet PO SCH (08:15)
[2017-10-08] MEDS: diltiazem 30mg tablet PO SCH ×2 (08:17→12:12)
[2017-10-08 11:00] VITALS: BP 143/53
[2017-10-08] MEDS: dextrose 50%-water 50ml dispensing syringe IV PRN ×2 (12:12→13:10)
[2017-10-08] MEDS: HYDROcodone/acetaminophen 5mg/325mg tablet PO PRN (12:12)
[2017-10-08] MEDS ORDERED: insulin glargine (Lantus) pen - multi-dose SQ SCH ×3 (21:00)
== END 2017-10-08 15:00 | DRG 870 ==
LOC: ER 14:19 → ED HOLD 14:57 → EDBEDREQ 16:50 → CICU 2S 16:55 → PCU 3S 10-06 16:50
PROVIDERS: ADMIT Internal Medicine Critical Care Medicine; ATTEND Internal Medicine Critical Care Medicine
PROC: 5A1955Z Respiratory Ventilation, Greater than 96 Consecutive Hours (ICD-10-PCS; principal; 2017-09-29)
PROC: 0BH17EZ Insertion of Endotracheal Airway into Trachea, Via Natural or Artificial Opening (ICD-10-PCS; 2017-09-29)
PROC: 5A1D70Z Performance of Urinary Filtration, Intermittent, Less than 6 Hours Per Day (ICD-10-PCS; 2017-09-29)
PROC: 02HV33Z Insertion of Infusion Device into Superior Vena Cava, Percutaneous Approach (ICD-10-PCS; 2017-09-29)
PROC: 5A1D70Z Performance of Urinary Filtration, Intermittent, Less than 6 Hours Per Day (ICD-10-PCS; 2017-09-30)
PROC: 5A1D70Z Performance of Urinary Filtration, Intermittent, Less than 6 Hours Per Day (ICD-10-PCS; 2017-10-01)
PROC: 5A1D70Z Performance of Urinary Filtration, Intermittent, Less than 6 Hours Per Day (ICD-10-PCS; 2017-10-02)
PROC: 0W9B3ZZ Drainage of Left Pleural Cavity, Percutaneous Approach (ICD-10-PCS; 2017-10-03)
PROC: 5A1D70Z Performance of Urinary Filtration, Intermittent, Less than 6 Hours Per Day (ICD-10-PCS; 2017-10-03)
PROC: 5A09357 Assistance with Respiratory Ventilation, Less than 24 Consecutive Hours, Continuous Positive Airway Pressure (ICD-10-PCS; 2017-10-04)
PROC: 5A09357 Assistance with Respiratory Ventilation, Less than 24 Consecutive Hours, Continuous Positive Airway Pressure (ICD-10-PCS; 2017-10-05)
PROC: 5A1D70Z Performance of Urinary Filtration, Intermittent, Less than 6 Hours Per Day (ICD-10-PCS; 2017-10-05)
PROC: 5A09357 Assistance with Respiratory Ventilation, Less than 24 Consecutive Hours, Continuous Positive Airway Pressure (ICD-10-PCS; 2017-10-06)
PROC: 5A1D70Z Performance of Urinary Filtration, Intermittent, Less than 6 Hours Per Day (ICD-10-PCS; 2017-10-06)
PROC: 5A1D70Z Performance of Urinary Filtration, Intermittent, Less than 6 Hours Per Day (ICD-10-PCS; 2017-10-08)
DX: A41.1 Sepsis due to other specified staphylococcus (principal); J96.01 Acute respiratory failure with hypoxia; N18.6 End stage renal disease; G93.40 Encephalopathy, unspecified; I50.31 Acute diastolic (congestive) heart failure; N17.9 Acute kidney failure, unspecified; I13.2 Hypertensive heart and chronic kidney disease with heart failure and with stage 5 chronic kidney disease, or end stage renal disease; J90 Pleural effusion, not elsewhere classified; E03.9 Hypothyroidism, unspecified; E11.22 Type 2 diabetes mellitus with diabetic chronic kidney disease; E66.01 Morbid (severe) obesity due to excess calories; I89.0 Lymphedema, not elsewhere classified; J44.9 Chronic obstructive pulmonary disease, unspecified; Z88.7 Allergy status to serum and vaccine; Z79.890 Hormone replacement therapy; Z79.899 Other long term (current) drug therapy; Z68.37 Body mass index [BMI] 37.0-37.9, adult
CPT/HCPCS: 32555; 36415; 36600; 71045; 74018; 80053; 80202; 82803; 82948; 83036; 83605; 83735; 83880; 84100; 84134; 84145; 84439; 84443; 84478; 84484; 85018; 85025; 85610; 85730; 87040; 87070; 87077; 87186; 87340; 90935; 92616; 93005; 93306; 94002; 94003; 94640; 94660; 94760; 97110; 97162; 97530; 97535; 99291; A4353; A6209; A6212; A6213; A6222; A6223; A6257; A6258; A6449; A7015; C9113; G0257; J0330; J0885; J1644; J1815; J2001; J2150; J2212; J2270; J2704; J2930; J2997; J3370; J7030